=== PATIENT | male | born 1950 | race Hispanic/Latino ===

== ENCOUNTER 2025-05-14 21:07 | Emergency (ER) | payer BC, OTHER ==
[~2025-05-14] VITALS: Ht 172.7 cm; Wt 70.8 kg
--- NOTE | 2025-05-14 21:13 | ERN ---
ED Note History of Present Illness Stated Complaint: BLEEDING L AXILLA Chief Complaint: Wound Check Time Seen by MD: 21:10 Dictation: SAY 74-YEAR-OLD MALE COMING IN TODAY WITH COMPLAINTS OF BLEEDING FROM A SURGICAL SITE FROM A CYST EXCISION TO HIS LEFT AXILLA THIS MORNING. HE STATES THE EXCISION WAS DONE BY DR. FATMATA ORLANDO AT HIS OFFICE IN THE [facility]. TONIGHT HE WAS WORKING WITH HIS PILL BOX WHEN HE NOTICED SOME BLEEDING. Past Medical History RN Note Reviewed/Agreed w/PFSH: Yes Review of System Dictation CONSTITUTIONAL: NEGATIVE EXCEPT FOR HPI HEAD/FACE: NEGATIVE EXCEPT FOR HPI EENT: NEGATIVE EXCEPT FOR HPI RESPIRATORY: NEGATIVE EXCEPT FOR HPI GASTROINTESTINAL/ABDOMINAL: NEGATIVE EXCEPT FOR HPI GENITOURINARY: NEGATIVE EXCEPT FOR HPI MUSCULOSKELETAL: NEGATIVE EXCEPT FOR HPI INTEGUMENTARY: NEGATIVE EXCEPT FOR HPI BLEEDING FROM LEFT AXILLARY LYMPH NODE SITE NEUROLOGICAL/PSYCH: NEGATIVE EXCEPT FOR HPI HEMATOLOGIC/LYMPHATIC: NEGATIVE EXCEPT FOR HPI ALL SYSTEMS NEGATIVE, EXCEPT NOTED ABOVE. 13 POINT REVIEW OF SYSTEMS ASSESSED AND ALL NEGATIVE EXCEPT FOR ABOVE. Initial Vital Sign VS Vital Signs Date Time Temp Pulse Resp B/P (MAP) Pulse Ox O2 Delivery O2 Flow Rate FiO2 05/14/25 21:08 99.1 65 16 168/85 98 Room Air 0 Physical Exam Dictation VITAL SIGNS REVIEWED GENERAL APPEARANCE: ALERT, ORIENTED X 3, NO ACUTE DISTRESS, WELL DEVELOPED, NOURISHED. 0/10 HEAD AND FACE: NON-TRAUMATIC. EYES: PERRL, PINK CONJUNCTIVAS, EYELID NO TRAUMA, ANTERIOR CHAMBER WITH ARCUS SENILIS. EARS: PINNAS INTACT AND NO SIGNS OF TRAUMA OR ERYTHEMA EAR CANALS CLEAR AND NO DISCHARGE TM NO ERYTHEMA NOSE: NO DISCHARGE, NO BLEEDING. OROPHARYNX: MOUTH NORMAL, TONGUE PINK, PHARYNX CLEAR,NO ERYTHEMA, TONSILS NO EXUDATES, NO ABSCESSES NOTED, MUCOUS MEMBRANE MOIST NECK: SUPPLE, NON-TENDER, NO THYROMEGALY, NO MASSES, NO JVD, NO BRUITS BREAST:DEFERRED CHEST:NO TENDERNESS, NO CREPITUS, NO PARADOXICAL MOVEMENT, NO RETRACTIONS LUNGS:CLEAR, WELL-VENTILATED, SYMMETRIC, NO RALES, NO WHEEZING, NO RHONCHI, NO STRIDOR, GOOD BREATH SOUNDS BILATERALLY HEART: REGULAR RATE, REGULAR RHYTHM, NO MURMUR, NO GALLOPS VASCULAR: NO PERIPHERAL EDEMA, ABDOMEN: SOFT, POSITIVE BOWEL SOUNDS, NONDISTENDED, NO GUARDING, NONTENDER, NO REBOUND, NO MASSES NO HEPATOMEGALY, NO SPLENOMEGALY, NO GARZA'S SIGN, NO HERNIAS. RECTAL: DEFERRED GENITAL: DEFERRED NEUROLOGICAL: NORMAL SPEECH, MOTOR FUNCTION INTACT, SENSORY FUNCTION INTACT MUSCULOSKELETAL: NECK NONTENDER, FULL RANGE OF MOTION, BACK NONTENDER, FULL RANGE OF MOTION, EXTREMITIES: NONTENDER, FULL RANGE OF MOTION SKIN: LEFT AXILLA LYMPH NODE SITE WITH CAPILLARY BLEEDING THAT WE WILL NOT TAMPONADE OFF. BLEEDING NOT PULSATILE QUICK CLOT WITH FOUR BY FOURS AND COBAN WAS PLACED. LYMPHATIC: DEFERRED Results (Laboratory/Radiology) Labs Reviewed?: Yes ED Course ED Course Orders Procedure Category Date Status Time *Nursing CPOE 05/14/25 Transmitted Communication: 21:10 Vital Signs Date Time Temp Pulse Resp B/P (MAP) Pulse Ox O2 Delivery O2 Flow Rate FiO2 05/14/25 21:08 99.1 65 16 168/85 98 Room Air 0 2130/SPOKE WITH THE PATIENT AND AT LENGTH THEY ARE BOTH AWARE TO FOLLOW UP WITH THE DOCTOR AT [facility] NO BLEEDING AT THE PRESENT TIME PATIENT IS HEMODYNAMICALLY STABLE. Medical Decision Making MDM MEDICAL DISCHARGE MAKING BASED ON HPI AND EVALUATION OF LEFT AXILLARY LYMPH NODE EXCISION SITE. NO PULSATILE BLEEDING PRESSURE DRESSING APPLIED WITH QUICK CLOT/ X 4/COBAN DRESSING CLEAN AND DRY AFTER PROCEDURE PATIENT AND STRONGLY ADVISED TO FOLLOW UP AT [facility] WHERE SURGEON HAS PRIVILEGES. DX & DISP Disposition: Discharge Departure Impression: Primary Impression: Postoperative bleeding from incision Condition: Stable Additional Instructions: FOLLOW-UP WITH PRIMARY CARE PROVIDER IN 1 TO 2 DAYS. TAKE MEDICATIONS DIRECTED HERE IN THE EMERGENCY ROOM. OKAY TO CONTINUE HOME MEDICATIONS UNLESS OTHERWISE DISCUSSED DURING YOUR VISIT IN THE EMERGENCY ROOM TODAY. RETURN TO YOUR NEAREST EMERGENCY ROOM IF SYMPTOMS WORSEN OR IF THERE IS NO IMPROVEMENT. CALL 911 IF YOU NEED IMMEDIATE ASSISTANCE. TAKE TYLENOL OR MOTRIN [id number] NEEDED AND IF NO CONTRAINDICATIONS ARE PRESENT. INCREASE ORAL HYDRATION. A WOUND CULTURE OR URINE CULTURE WAS ORDERED HERE IN THE EMERGENCY ROOM DEPARTMENT PLEASE FOLLOW-UP WITH PRIMARY CARE PROVIDER AND ADVISE THEM TO GET REPEAT PORTS FROM OUR FACILITY. IF YOU HAD ANY BRANDON WRAP/SPLINTS THAT WERE APPLIED HERE, PLEASE DO NOT REMOVE THEM UNTIL YOU SEE YOUR PRIMARY CARE OR SPECIALTY. PROCEED [facility] FOR FOLLOW UP WITH THE YOUR SURGEON. Referrals: RICHIE KURTZ MD (PCP) Time of Disposition: 21:32 I have reviewed the case, and I agree with, Diagnosis and Plan [facility] May 14, 2025 21:13
[2025-05-14 21:46] VITALS: BP 144/63; PULSE 73; RESP 18; TEMP 98.2; O2SAT 98
== END 2025-05-14 21:45 | disposition home or self-care (01) ==
LOC: EDH 21:07
DX: L76.22 Postprocedural hemorrhage of skin and subcutaneous tissue following other procedure (principal)
CPT/HCPCS: 99282